=== PATIENT | female | born 1965 | race Caucasian/White ===

== ENCOUNTER 2022-03-04 10:43 | Emergency (ER) | payer OTHER, SELFPAY ==
--- NOTE | ~2022-03-04 | XR_ITS ---
EXAMINATION: XR chest 2V DATE: 03/04/2022 11:53 INDICATION: Productive cough TECHNIQUE: PA and lateral views of the chest are obtained. COMPARISON: None available FINDINGS: There are patchy opacities of the mid and lower lung zones. No pleural effusion or pneumoth orax. The cardiomediastinal silhouette is normal. There is moderate thoracic spondylosis. IMPRESSION: 1. Patchy opacities of the mid and lower lung zones, consistent with atelectasis versus pneumonia. Reviewed, dictated and finalized at location A. IMPRESSION: 1. Patchy opacities of the mid and lower lung zones, consistent with atelectasi s versus pneumonia.
[2022-03-04 10:58] VITALS: BP 138/93; PULSE 91; RESP 16; TEMP 38.1; O2SAT 99
--- NOTE | 2022-03-04 11:31 | ED.URI ---
HPI - URI/Sore Throat General Chief Complaint: Upper Respiratory Infection Stated Complaint: cough Time Seen by Provider: 03/04/22 11:31 Source: patient and RN notes reviewed Mode of arrival: ambulatory Limitations: no limitations History of Present Illness HPI Narrative: 56-year-old female presents to the [facility] with complaints of cough and fever since Tuesday. Has not taken anything for her symptoms. Has not been using her inhalers. States that she called in sick on Tuesday and today. MD elicited complaint: fever and cough Related Data Home Medications Medication Instructions Recorded Confirmed gabapentin 300 mg capsule mg 03/04/22 levothyroxine 200 mcg tablet mcg 03/04/22 omeprazole 20 mg capsule,delayed mg 03/04/22 release tramadol 50 mg tablet mg 03/04/22 zolpidem 10 mg tablet mg 03/04/22 Allergies Allergy/AdvReac Type Severity Reaction Status Date / Time No Known Allergies Allergy Mild Unverified 03/04/22 10:50 Review of Systems Review of Systems: All systems reviewed & are unremarkable except as noted in HPI and below Constitutional: Constitutional: Reports as per HPI, Reports no additional constitutional complaints, Denies chills and Reports fever(s) Eyes: Eyes: Reports no additional eye complaints ENT: Reports system reviewed and no additional complaints, except as documented Cardiovascular: Cardiovascular: Reports no additional cardiovascular complaints Respiratory: Respiratory: Reports as per HPI and Reports cough Gastrointestinal: Gastrointestinal: Reports no additional gastrointestinal complaints Musculoskeletal: Musculoskeletal: Reports no additional musculoskeletal complaints Integumentary/Breasts: Skin/Breast: Reports system reviewed and no additional complaints, except as docu Neurologic: Reports system reviewed and no additional complaints, except as documented Psychiatric: Psychiatric: Reports no additional psychiatric complaints Allergic/Immunologic: Allergic/Immunologic: Reports no additional allergic/immunologic complaints PMFSH Comments At the time of my signature, I reviewed and agree with the nursing past medical, surgical, social, and family history. There is no relevant family history pertinent to the patient complaint. Exam Const: General: no acute distress, alert, ill appearing acutely (mild) and well nourished Nutritional Appearance: well nourished Orientation/consciousness: patient oriented x3 Limitations: no limitations HENMT: Head: normal to inspection Ears: external ears normal, TM's normal bilaterally and EAC's normal Face/Nose/Sinus: Normal external nose present Face and sinus: normal facial exam and sinuses nontender Mouth: Yes Normal oral and palatal mucosa present, Yes lip normal and Yes moist mucous membranes Throat: posterior oropharynx normal and uvula midline Eyes: General: appearance normal, both eyes and all related structures Pupils: Equal, round and reactive pupils present Neck: Neck: normal visual inspection, no lymphadenopathy and no meningeal signs Chest: Chest palpation & inspection: normal inspection of the chest Resp: Effort & Inspection: normal respiratory effort and no use of accessory muscles Auscultation: clear to auscultation bilaterally, crackles bilateral in the lower lung cerna, no rales, no rhonchi and no wheezes Cardio: Rate: regular rate Rhythm: regular rhythm Back/Spine/Pelvis: Cervical Spine: normal cervical lordosis Thoracic/Lumbar Spine: thoracic and lumbar spine normal to inspection Skin: General skin exam: normal color Rashes: no rashes Wounds: no wounds Neuro: General: patient oriented x3, moves all extremities, no meningeal signs and no focal motor deficits Cranial nerves: Yes Equal, round and reactive pupils present Speech: normal speech Gait exam (Neuro): Normal gait present Extrem: General: normal to inspection, full ROM and capillary refill normal Psych: Appearance: grossly normal an
== END 2022-03-04 12:25 | disposition home or self-care (01) ==
PROVIDERS: Emergency Provider Nurse Practitioner
DX: J18.9 Pneumonia, unspecified organism (principal); Z20.822 Contact with and (suspected) exposure to COVID-19; J45.909 Unspecified asthma, uncomplicated; K21.9 Gastro-esophageal reflux disease without esophagitis; Z96.651 Presence of right artificial knee joint
CPT/HCPCS: 71046; 87081; 87426; 87804; 87880; 99213; C9803; G0463